=== PATIENT | female | born 1980 | race Two or more races ===

== ENCOUNTER 2019-07-31 17:59 | Emergency (ER) | payer MEDICAID ==
[~2019-07-31] VITALS: Ht 175.3 cm; Wt 86.4 kg
[2019-07-31 19:19] LABS: BASOPHILS % (AUTO) 1.3 % (0.0-2.0); EOSINOPHILS % (AUTO) 3.6 % (1.0-6.0); HEMATOCRIT 36.3 % (36-46); LYMPHOCYTES # (AUTO) 2.5 K/uL (1.0-4.8); LYMPHOCYTES % (AUTO) 30.3 % (22.0-44.0); MEAN CORPUSCULAR HEMOGLOBIN 31.7 pg (26.0-34.0); MEAN CORPUSCULAR HGB CONC 32.9 G/dL (31.0-37.0); MEAN CORPUSCULAR VOLUME 96 fL (80-100); MONOCYTES # (AUTO) 0.7 K/uL (0.1-1.0); MONOCYTES % (AUTO) 8.1 % (2.0-9.0); NEUTROPHILS # (AUTO) 4.7 K/uL (1.8-7.7); NEUTROPHILS % (AUTO) 56.7 % (40.0-70.0); PLATELET COUNT (AUTO) 209 K/uL (150-450); RED BLOOD CELL COUNT(AUTO) 3.78 MIL/uL (4.00-5.20); RED CELL DISTRIBUTION WIDTH 13.8 % (11.5-14.5)
[2019-07-31 19:30] LABS: ANION GAP 5 mmol/L (8-16); CALCIUM, TOTAL 9.6 mg/dL (8.8-10.5); CARBON DIOXIDE 30 mmol/L (22-29); CHLORIDE 103 mmol/L (98-107); CREATININE 0.63 mg/dL (0.60-1.30); GLOMERULAR FILTR. RATE CALC > 60 mL/min (>60); GLUCOSE,RANDOM 93 mg/dL (70-110); POTASSIUM 3.7 mmol/L (3.5-5.1); SODIUM SERUM 138 mmol/L (136-145); UREA NITROGEN, BLOOD 10 mg/dL (7-18)
[2019-07-31 19:43] LABS: ALANINE AMINOTRANSFERASE 19 U/L (12-78); ALBUMIN 3.9 g/dL (3.4-5.0); ALKALINE PHOSPHATASE 113 U/L (46-116); ASPARTATE AMINOTRANSFERASE 24 U/L (15-37); BILIRUBIN,TOTAL 0.2 mg/dL (0.1-1.0); HCG,QUANTITATIVE < 1 mIU/mL (0-6); LIPASE 136 U/L (73-393); TOTAL PROTEIN, SERUM 7.6 g/dL (6.4-8.2)
[2019-07-31 21:09] LABS: APPEARANCE,URINE CLEAR (CLEAR); BILIRUBIN,URINE NEGATIVE (NEGATIVE); GLUCOSE, URINE (UA) NEGATIVE (NEGATIVE); KETONES,URINE NEGATIVE (NEGATIVE); LEUKOCYTE ESTERASE ,URINE NEGATIVE (NEGATIVE); NITRATE,URINE NEGATIVE (NEGATIVE); OCCULT BLOOD,URINE TRACE (NEGATIVE); PROTEIN,URINE NEGATIVE (NEGATIVE); UROBILINOGEN,URINE 0.2 mg/dL (<=1.0)
[2019-07-31 21:23] LABS: BACTERIA,URINE Few /HPF (None Seen); RBC,URINE 0-2 /HPF (0-2)
[2019-07-31 21:24] LABS: SQUAMOUS EPITHELIAL CELL,UR Few /LPF (None Seen)
[2019-07-31] MEDS ORDERED: DiphenhydrAMINE HCL 50 MG/ML VIAL IVP STA (21:36)
[2019-07-31] MEDS ORDERED: SODIUM CHLORIDE 0.9% 1,000 ML IV ONE (21:45)
[2019-07-31] MEDS ORDERED: ONDANSETRON HCL 4 MG/2 ML VIAL IVP ONE (21:45)
[2019-07-31] MEDS ORDERED: BARIUM SULFATE 0.1% SUSPENSION 450 ML BOTTLE PO ONE (21:45)
[2019-07-31] MEDS ORDERED: MethylPREDNISolone SOD SUCC 125 MG/2 ML VIAL IVP ONE (21:45)
[2019-07-31] MEDS ORDERED: KETOROLAC TROMETHAMINE 30 MG/ML VIAL IVP ONE (21:45)
[2019-07-31] MEDS ORDERED: SODIUM CHLORIDE 0.9% 100 ML ONE (22:33)
[2019-07-31] MEDS ORDERED: IOVERSOL 350 MG/ML 100 ML VIAL ONE (22:33)
[2019-08-01] MEDS ORDERED: MORPHINE SULFATE 4 MG/ML SYRINGE IVP ONE (00:30)
[2019-08-01 01:48] VITALS: BP 129/76
== END 2019-08-01 01:55 | disposition home or self-care (01) ==
LOC: EMS 18:11
DX: R10.32 Left lower quadrant pain (principal); R22.0 Localized swelling, mass and lump, head; Z90.89 Acquired absence of other organs
CPT/HCPCS: 36415; 74177; 80053; 81001; 83690; 84702; 85025; 96374; 96375 ×2; 99284; J1200; J1885; J2270; J2405; J2930; J7030; J7050; Q9967

== ENCOUNTER 2020-01-31 13:27 | Emergency (ER) | payer MEDICAID ==
[~2020-01-31] VITALS: Ht 172.7 cm; Wt 100.0 kg
[2020-01-31 13:35] VITALS: BP 117/77
[2020-01-31] MEDS ORDERED: DEPOP150I IM (13:42)
[2020-01-31] MEDS ORDERED: OMEP20 PO (13:42)
[2020-01-31 14:49] LABS: BILIRUBIN,URINE NEGATIVE (NEGATIVE); GLUCOSE, URINE (UA) NEGATIVE (NEGATIVE); KETONES,URINE NEGATIVE (NEGATIVE); LEUKOCYTE ESTERASE ,URINE NEGATIVE (NEGATIVE); NITRATE,URINE NEGATIVE (NEGATIVE); OCCULT BLOOD,URINE NEGATIVE (NEGATIVE); PROTEIN,URINE NEGATIVE (NEGATIVE); UROBILINOGEN,URINE 0.2 mg/dL (<=1.0)
[2020-01-31 14:54] LABS: APPEARANCE,URINE HAZY (CLEAR)
== END 2020-01-31 15:50 | disposition left against medical advice (07) ==
LOC: EMS 13:28
DX: R10.33 Periumbilical pain (principal); Z53.21 Procedure and treatment not carried out due to patient leaving prior to being seen by health care provider

== ENCOUNTER 2023-01-26 14:58 | Inpatient (IN) | payer MEDICAID, OTHER ==
[~2023-01-26] VITALS: Ht 165.1 cm; Wt 80.7 kg
[~2023-01-26 14:58] MED LIST: MEDR150V13 IM; OMEP20 PO
[2023-01-26] MEDS ORDERED: SODIUM CHLORIDE 0.9% 1,000 ML IV ONE (17:00)
[2023-01-26 17:38] LABS: BASOPHILS % (AUTO) 0.4 % (0.0-2.0); EOSINOPHILS % (AUTO) 0.1 % (1.0-6.0); HEMATOCRIT 39.7 % (36-46); HEMOGLOBIN 13.6 g/dL (12.0-16.0); LYMPHOCYTES # (AUTO) 0.7 K/uL (1.0-4.8); LYMPHOCYTES % (AUTO) 7.6 % (22.0-44.0); MEAN CORPUSCULAR HEMOGLOBIN 30.9 pg (26.0-34.0); MEAN CORPUSCULAR HGB CONC 34.3 G/dL (31.0-37.0); MEAN CORPUSCULAR VOLUME 90 fL (80-100); MONOCYTES # (AUTO) 0.5 K/uL (0.1-1.0); PLATELET COUNT (AUTO) 123 K/uL (150-450); RED BLOOD CELL COUNT(AUTO) 4.41 MIL/uL (4.00-5.20); RED CELL DISTRIBUTION WIDTH 14.6 % (11.5-14.5)
[2023-01-26 17:39] LABS: NEUTROPHILS % (AUTO) 86.9 % (40.0-70.0)
[2023-01-26 17:45] LABS: ANION GAP 11 mmol/L (8-16); CALCIUM, TOTAL 8.4 mg/dL (8.8-10.5); CARBON DIOXIDE 28 mmol/L (22-29); CHLORIDE 89 mmol/L (98-107); CREATININE 0.54 mg/dL (0.60-1.30); GLOMERULAR FILTR. RATE CALC > 60 mL/min (>60); GLUCOSE,RANDOM 108 mg/dL (70-110); SODIUM SERUM 128 mmol/L (136-145); UREA NITROGEN, BLOOD 7 mg/dL (7-18)
[2023-01-26 17:57] LABS: ALANINE AMINOTRANSFERASE 64 U/L (12-78); ALBUMIN 3.4 g/dL (3.4-5.0); ALKALINE PHOSPHATASE 120 U/L (46-116); ASPARTATE AMINOTRANSFERASE 214 U/L (15-37); BILIRUBIN,TOTAL 1.4 mg/dL (0.1-1.0); HCG,QUANTITATIVE < 1 mIU/mL (0-6)
[2023-01-26] MEDS ORDERED: POTASSIUM CHLORIDE 20 MEQ ER TABLET PO ONE (18:45)
[2023-01-26] MEDS ORDERED: LORazepam 2 MG/ML VIAL IVP ONE (19:00)
[2023-01-26] MEDS ORDERED: ONDANSETRON HCL 4 MG/2 ML VIAL IVP ONE (19:00)
[2023-01-26] MEDS ORDERED: MAGNESIUM SULFATE 2 GM, MVI, ADULT NO.1 WITH VIT K 10 ML, THIAMINE 100 MG, FOLIC ACID 1... IV ONE ×5 (20:00)
[2023-01-26] MEDS ORDERED: ZOLPIDEM TARTRATE 5 MG TABLET PO PRN (20:15)
[2023-01-26] MEDS ORDERED: ONDANSETRON HCL 4 MG/2 ML VIAL IVP PRN (20:15)
[2023-01-26] MEDS ORDERED: MAGNESIUM HYDROXIDE SUSPENSION 30 ML UDCUP PO PRN (20:15)
[2023-01-26] MEDS ORDERED: MORPHINE SULFATE 2 MG/ML SYRINGE IVP PRN (20:15)
[2023-01-26] MEDS ORDERED: BISACODYL 10 MG RECTAL RECTAL SUPPOSITORY PR PRN (20:15)
[2023-01-26] MEDS ORDERED: MAGNESIUM SULFATE 2 GM/WATER 50 ML IV PRN (20:30)
[2023-01-26] MEDS ORDERED: MAGNESIUM OXIDE 400 MG TABLET PO PRN (20:30)
[2023-01-26] MEDS ORDERED: MAGNESIUM SULFATE 4 GM/WATER 100 ML IV PRN (20:30)
[2023-01-26] MEDS ORDERED: POTASSIUM CHL 10 MEQ/WATER 50 ML IV PRN (20:30)
[2023-01-26] MEDS ORDERED: POTASSIUM CHLORIDE 20 MEQ ER TABLET PO PRN (20:30)
[2023-01-26] MEDS: DOCUSATE SODIUM 100 MG CAPSULE PO SCH (21:00)
[2023-01-26 23:02] LABS: COVID AG,FIA SOURCE NASAL SWAB
[2023-01-27] VITALS (8 sets, daily range): BP systolic 105–117; BP diastolic 54–70
[2023-01-27] MEDS: HEPARIN SODIUM,PORCINE 5,000 UNITS/ML VIAL SQ SCH ×4 (00:09→23:05)
[2023-01-27] MEDS: ChlordiazePOXIDE HCL 25 MG CAPSULE PO PRN ×4 (00:14→23:12)
[2023-01-27] MEDS ORDERED: MAGNESIUM SULFATE 2 GM, MVI, ADULT NO.1 WITH VIT K 10 ML, THIAMINE 100 MG, FOLIC ACID 1... IV ONE ×5 (01:00)
[2023-01-27] MEDS: PANTOPRAZOLE SODIUM 40 MG DR TABLET PO SCH (08:13)
[2023-01-27] MEDS: DOCUSATE SODIUM 100 MG CAPSULE PO SCH ×2 (08:14→19:50)
[2023-01-27] MEDS: ChlordiazePOXIDE HCL 25 MG CAPSULE PO SCH ×4 (08:22→19:49)
[2023-01-27] MEDS: ACETAMINOPHEN 325 MG TABLET PO PRN ×2 (09:20→17:40)
[2023-01-27] MEDS: HYDROCODONE/ACETAMINOPHEN 5-325 MG TABLET PO PRN (19:49)
[2023-01-28] MEDS: HYDROCODONE/ACETAMINOPHEN 5-325 MG TABLET PO PRN ×2 (02:17→06:10)
[2023-01-28] MEDS: ChlordiazePOXIDE HCL 25 MG CAPSULE PO PRN (03:53)
[2023-01-28 04:03] VITALS: BP 112/73
[2023-01-28] MEDS: ChlordiazePOXIDE HCL 25 MG CAPSULE PO SCH ×3 (08:04→16:00)
[2023-01-28] MEDS: DOCUSATE SODIUM 100 MG CAPSULE PO SCH ×2 (08:04→09:00)
[2023-01-28] MEDS: PANTOPRAZOLE SODIUM 40 MG DR TABLET PO SCH (08:05)
[2023-01-28] MEDS: HEPARIN SODIUM,PORCINE 5,000 UNITS/ML VIAL SQ SCH ×2 (08:05→16:00)
[2023-01-28 08:38] VITALS: BP 104/69
[2023-01-28 08:44] VITALS: BP 104/69
[2023-01-28] MEDS ORDERED: LIB25 PO (14:32)
[2023-01-28] MEDS ORDERED: PANT-31 PO (14:32)
[2023-01-28] MEDS ORDERED: ACET-2247 PO (14:33)
[2023-01-28] MEDS ORDERED: MULT-1366 PO (14:33)
[2023-01-28] MEDS ORDERED: FOLI-130 PO (14:34)
[2023-01-28] MEDS ORDERED: THIA100T80 PO (14:35)
[2023-01-29] MEDS ORDERED: ChlordiazePOXIDE HCL 10 MG CAPSULE PO PRN (07:00)
[2023-01-29] MEDS ORDERED: ChlordiazePOXIDE HCL 10 MG CAPSULE PO SCH (09:00)
[2023-01-30] MEDS ORDERED: ChlordiazePOXIDE HCL 10 MG CAPSULE PO PRN (07:00)
== END 2023-01-28 14:25 | disposition home or self-care (01) | DRG 426 ==
LOC: EMS 15:02 → EDBD 15:02 → 6N 21:01
PROVIDERS: ADMIT Internal Medicine; ATTEND Internal Medicine
DX: E87.1 Hypo-osmolality and hyponatremia (principal); K70.30 Alcoholic cirrhosis of liver without ascites; R56.9 Unspecified convulsions; E87.6 Hypokalemia; K21.9 Gastro-esophageal reflux disease without esophagitis; F10.139 Alcohol abuse with withdrawal, unspecified; Z20.822 Contact with and (suspected) exposure to COVID-19; Z88.0 Allergy status to penicillin; Z91.041 Radiographic dye allergy status; Z88.8 Allergy status to other drugs, medicaments and biological substances; Z79.899 Other long term (current) drug therapy; Z88.1 Allergy status to other antibiotic agents; Z91.013 Allergy to seafood; Z91.018 Allergy to other foods
CPT/HCPCS: 80053; 82040; 83735; 84702; 85025; 99285; J1644; J2060; J2405; J3411; J3475; J3490; J7030